=== PATIENT | male | born 1955 | race Caucasian/White ===

== ENCOUNTER 2017-08-14 19:21 | Inpatient (IN) | payer OTHER ==
[~2017-08-14] VITALS: Ht 170.2 cm; Wt 147.3 kg
[2017-08-14 23:02] LABS: HEMATOCRIT 34.7 % (38.0-50.0); MCH 33.2 PG (29.0-34.0); MCHC 34.9 G/DL (30.0-36.0); MCV 95.3 FL (86-99); MEAN PLAT.VOLUME 10.8 uM^3 (9.0-12.4); PLATELET COUNT 115 K/uL (156-360); RBC DIS.WIDTH-CV 12.4 % (11.8-14.6); RBC DIS.WIDTH-SD 43.2 % (39-53); RED BLOOD COUNT 3.64 M/uL (4.00-5.50); WHITE BLOOD COUNT 6.4 K/uL (4.1-10.2)
[2017-08-14 23:16] LABS: CHLORIDE 104 mEq/L (99-109)
[2017-08-14 23:17] LABS: POTASSIUM 3.6 mEq/L (3.7-5.4); SODIUM 141 mEq/L (136-147)
[2017-08-14 23:19] LABS: GLUCOSE 155 mg/dL (70-99)
[2017-08-14 23:20] LABS: ANION GAP 13 MEQ/L (2-14)
[2017-08-14 23:22] LABS: ALKALINE PHOSPHATASE 47 IU/L (3-129); GFR ESTIMATE (CALCULATED) > 59 mL/min/
[2017-08-14 23:24] LABS: UREA NITROGEN (BUN) 18 mg/dL (9-23)
[2017-08-15] MEDS ORDERED: METFORMIN HCL500 MG PO (00:43)
[2017-08-15] MEDS ORDERED: HYZAAR 100-11 TABLET PO (00:43)
[2017-08-15] MEDS ORDERED: XANAX0.5 MG PO (00:43)
[2017-08-15] MEDS ORDERED: ATORVASTATIN CA20 MG PO (00:43)
[2017-08-15] MEDS ORDERED: ATENOLOL50 MG PO (00:43)
[2017-08-15] MEDS ORDERED: MEN 50 PLUS MU1 EACH PO (00:44)
[2017-08-15] MEDS ORDERED: LO-DOSE ASPIRIN81 M1 PO (00:44)
[2017-08-15] MEDS ORDERED: ADVIL,NUPRIN,M200 MG PO (00:44)
[2017-08-15 01:55] LABS: BILIRUBIN NEGATIVE; BLOOD NEGATIVE; COLOR YELLOW ((YELLOW)); GLUCOSE (STRIP) NEGATIVE; KETONES NEGATIVE; LEUKOCYTES NEGATIVE; NITRITE NEGATIVE; PROTEIN (STRIP) NEGATIVE; SPECIFIC GRAVITY 1.021 (1.000-1.030); UROBILINOGEN 0.2 MG/DL (0.2-1.0)
[2017-08-15 01:59] LABS: ADD MIUA? NO; UCUL ADDED? NO
[2017-08-15 03:35] VITALS: BP 144/80
[2017-08-15 08:07] VITALS: BP 188/83
[2017-08-15 13:14] LABS: METH RESISTANT S AUREUS PCR NEGATIVE (NEGATIVE)
[2017-08-15 13:19] LABS: PROBE CHECK PASS; SPECIMEN PROCESSING CONTROL PASS
[2017-08-15 15:55] VITALS: BP 165/74
[2017-08-15 19:39] VITALS: BP 140/80
[2017-08-15 23:23] VITALS: BP 167/73
[2017-08-16 04:39] VITALS: BP 146/68
[2017-08-16 07:24] LABS: EOSINOPHIL (%) 2.1 % (0-5); EOSINOPHIL COUNT 0.1 K/uL (0-0.3); HEMATOCRIT 34.9 % (38.0-50.0); IMMATURE GRANULOCYTE (%) 0.4 % (0.0-0.7); INSTRUMENT ABS NEUTROPHIL CT 3.6 K/uL; LYMPHOCYTE COUNT 0.9 K/uL (1.0-2.8); MCH 32.6 PG (29.0-34.0); MCHC 34.1 G/DL (30.0-36.0); MCV 95.6 FL (86-99); MEAN PLAT.VOLUME 11.4 uM^3 (9.0-12.4); MONOCYTE (%) 9.5 % (3-12); MONOCYTE COUNT 0.5 K/uL (0-0.8); NEUTROPHIL (%) 69.8 % (45-76); NEUTROPHIL COUNT 3.6 K/uL (1.8-6.4); PLATELET COUNT 104 K/uL (156-360); RBC DIS.WIDTH-CV 12.4 % (11.8-14.6); RBC DIS.WIDTH-SD 43.5 % (39-53); RED BLOOD COUNT 3.65 M/uL (4.00-5.50); WHITE BLOOD COUNT 5.2 K/uL (4.1-10.2)
[2017-08-16 07:47] LABS: ANION GAP 12 MEQ/L (2-14); CHLORIDE 104 MEQ/L (99-109); GFR ESTIMATE (CALCULATED) > 59 mL/min/; GLUCOSE 155 mg/dL (70-99); POTASSIUM 3.6 MEQ/L (3.7-5.4); SAMPLE HEMOLYSIS CHECK 0; SAMPLE ICTERIC CHECK 0; SAMPLE LIPEMIA CHECK 0; SODIUM 142 MEQ/L (136-147); UREA NITROGEN (BUN) 14 mg/dL (9-23)
[2017-08-16 07:59] VITALS: BP 132/68
[2017-08-16 15:55] VITALS: BP 130/62
[2017-08-16 16:30] LABS: POINT-OF-CARE METER ID UU14117124
[2017-08-16 21:28] LABS: POINT-OF-CARE METER ID UU14117124
[2017-08-16 23:28] VITALS: BP 144/67
[2017-08-17 06:39] LABS: POINT-OF-CARE METER ID UU14188577
[2017-08-17 08:13] VITALS: BP 126/78
[2017-08-17 11:41] LABS: POINT-OF-CARE METER ID UU14117124
[2017-08-17] MEDS ORDERED: KEFLEX500 MG PO (13:31)
[2017-08-17] MEDS ORDERED: ACIDOPHILUS1 EAC3 PO (13:32)
[2017-08-17] MEDS ORDERED: BACTRIM,SEPT1 TABLET PO (13:32)
[2017-08-17] MEDS ORDERED: MICONAZORB AF71 GM TP (13:33)
== END 2017-08-17 15:41 | disposition home or self-care (01) | DRG 603 ==
LOC: EME 19:21 → EDOF 08-15 01:21 → ENRESERV 08-15 01:22 → 3EAST 08-15 02:39
PROVIDERS: Family Medicine; Hospitalist
DX: L03.113 Cellulitis of right upper limb (principal); L03.312 Cellulitis of back [any part except buttock and flank]; L03.311 Cellulitis of abdominal wall; D69.6 Thrombocytopenia, unspecified; L01.03 Bullous impetigo; B37.2 Candidiasis of skin and nail; E87.6 Hypokalemia; I10 Essential (primary) hypertension; E11.9 Type 2 diabetes mellitus without complications; E78.00 Pure hypercholesterolemia, unspecified; F41.9 Anxiety disorder, unspecified; Z96.649 Presence of unspecified artificial hip joint; E66.9 Obesity, unspecified; Z68.43 Body mass index [BMI] 50.0-59.9, adult; Z87.891 Personal history of nicotine dependence; Z79.84 Long term (current) use of oral hypoglycemic drugs; Z79.82 Long term (current) use of aspirin
CPT/HCPCS: 80048; 80053; 80202; 81003; 82948; 83605; 85025; 85027; 87040; 87641; 99281; 99285; J0690; J1650; J1815; J2543; J3370; J7050